=== PATIENT | male | born 1955 | race Hispanic/Latino ===

== ENCOUNTER 2020-06-28 07:50 | Outpatient (CLI) | payer MEDICARE ==
--- NOTE | 2020-06-28 08:37 | ULT ---
EXAM: US Abdominal Aorta PROVIDED CLINICAL HISTORY: Screening evaluation for abdominal aortic aneurysm. COMPARISON: None. FINDINGS: There is mild atherosclerotic irregularity of the abdominal aorta, but no abdominal aortic aneurysm i s seen. The proximal and mid abdominal aorta each measure 2 cm in maximal dimension. Distal abdominal aorta measures 1.9 cm in maximal dimension. There is calcified atherosclerotic plaque prese nt within the abdominal aorta. The iliac arteries are difficult to assess on grayscale imaging, but flow is demonstrated in the visualized common iliac arteries. IMPRESSION: Atherosclerotic plaque in the abdominal aorta, but there is no evidence of an abdominal aortic aneury sm.
== END 2020-06-28 07:51 | disposition home or self-care (01) ==
LOC: SCSULT 07:50
PROVIDERS: ATTEND Internal Medicine
DX: Z13.6 Encounter for screening for cardiovascular disorders (principal); I70.0 Atherosclerosis of aorta
CPT/HCPCS: 76775